=== PATIENT | male | born 1990 | race Caucasian/White ===

== ENCOUNTER 2020-10-21 13:11 | Inpatient (IN) | payer OTHER ==
[2020-10-21 13:51] LABS: #Basophils 0.1 10x3/uL (0.0-0.2); #Eosinphils 0.2 10x3/uL (0.0-0.5); #Monocytes 0.8 10x3/uL (0.0-1.1); #Neutrophils 5.7 10x3/uL (1.5-8.4); %Basophils 0.6 % (0.0-2.0); %Eosinophils 1.7 % (0.0-6.0); %Monocytes 8.8 % (0.0-10.0); %Neutrophils 65.8 % (40.0-75.0); Hemoglobin 15.8 g/dL (13.5-17.5); Mean Corpuscular HGB CONC 34.6 g/dL (32.0-36.0); Mean Corpuscular Hemoglobin 30.3 pg (27.0-33.0); Mean Corpuscular Volume 87.5 fl (81.2-95.1); Mean Platelet Volume 8.7 fl (7.4-10.4); Platelet Count 230 10x3/uL (150-450); RBC Distribution Width 12.2 % (11.5-14.5); Red Blood Cell (RBC) Count 5.22 10x6/uL (4.32-5.72); White Blood Cell (WBC) Count 8.6 10x3/uL (3.5-10.5)
[2020-10-21 14:06] LABS: Bilirubin 1+ (Negative); Blood, Urine 250 (Negative); Clarity Slightly Cloudy (Clear); Glucose, Urine (Dipstick) Normal (Negative); Ketone, Urine 15 mg/dL (Negative); Leukocyte 25 (Negative); Nitrite Positive (Negative); Protein, Urine (Dipstick) 500 mg/dl (Neg-Trace); pH, Urine 6.5 (5.0-9.0)
[2020-10-21 14:06] LABS: ALT (SGPT) 358 U/L (8-55); AST (SGOT) 2037 U/L (5-34); Albumin 4.6 g/dL (3.5-5.0); Alkaline Phosphatase 76 U/L (40-110); Anion Gap 11 mmol/L (10-20); BUN (Urea Nitrogen) 14 mg/dL (8.9-20.6); Bilirubin, Total 0.7 mg/dL (0.2-1.2); Calc. Creatinine Clearance 0 mL/min (70-130); Carbon Dioxide 28 mmol/L (22-29); Chloride 103 mmol/L (98-107); Globulin 2.9 g/dL (2.4-3.5); Glucose 85 mg/dL (70-105); Potassium 4.1 mmol/L (3.5-5.1); Protein, Total 7.5 g/dL (6.0-8.3); Sodium 138 mmol/L (136-145)
[2020-10-21 14:16] LABS: RBC/HPF 0-3 HPF (0-3); Squamous Epithelial None Seen HPF (0-3); Transitional Epithelial 0-3 HPF (None Seen)
[2020-10-21 14:17] LABS: Bacteria/HPF Rare-Few HPF (None Seen)
[2020-10-21 14:40] LABS: CK (CPK) Greater than 40000 U/L (30-200)
[2020-10-21] MEDS ORDERED: cefTRIAXone\\ROCEPHIN 2 GM VIAL ONE (14:59)
[2020-10-21] MEDS ORDERED: Acetaminophen 325 MG TAB PO PRN (20:20)
[2020-10-21] MEDS ORDERED: Calcium Carbonate 500 MG ChewTAB PO PRN (20:20)
[2020-10-21] MEDS ORDERED: Ondansetron PF 4 MG/2 ML Vial IVP PRN (20:20)
[2020-10-21] MEDS ORDERED: Guaifenesin DM 100-10/5 ML UDCUP PO PRN (20:20)
[2020-10-21] MEDS ORDERED: Albuterol Sulfate 2.5 mg/3 ml Neb NEB PRN (20:23)
[2020-10-21 23:47] VITALS: BMI 26.5
[2020-10-22] MEDS ORDERED: Senokot S 8.6-50 MG TAB PO SCH (00:15)
[2020-10-22] MEDS: Sodium Chloride 0.9% 1,000 ML IV SCH ×6 (00:27→20:43)
[2020-10-22 01:25] LABS: Bilirubin Neg (Negative); Blood, Urine 250 (Negative); Clarity Clear (Clear); Glucose, Urine (Dipstick) Normal (Negative); Ketone, Urine 50 mg/dL (Negative); Leukocyte 25 (Negative); Nitrite Negative (Negative); Protein, Urine (Dipstick) 100 mg/dl (Neg-Trace); Specific Gravity, Urine 1.015 (1.002-1.036)
[2020-10-22 01:45] LABS: Bacteria/HPF 1+ HPF (None Seen); Mucous/LPF 1+ LPF (<2+); Squamous Epithelial 0-3 HPF (0-3)
[2020-10-22 06:11] LABS: #Basophils 0.1 10x3/uL (0.0-0.2); #Eosinphils 0.2 10x3/uL (0.0-0.5); #Monocytes 0.7 10x3/uL (0.0-1.1); #Neutrophils 3.8 10x3/uL (1.5-8.4); %Basophils 0.7 % (0.0-2.0); %Eosinophils 3.3 % (0.0-6.0); %Lymphocytes 30.1 % (18.0-47.0); %Monocytes 9.8 % (0.0-10.0); Hemoglobin 14.6 g/dL (13.5-17.5); Mean Corpuscular HGB CONC 34.7 g/dL (32.0-36.0); Mean Corpuscular Hemoglobin 30.8 pg (27.0-33.0); Mean Corpuscular Volume 88.8 fl (81.2-95.1); Mean Platelet Volume 8.9 fl (7.4-10.4); Platelet Count 210 10x3/uL (150-450); RBC Distribution Width 12.3 % (11.5-14.5); Red Blood Cell (RBC) Count 4.74 10x6/uL (4.32-5.72); White Blood Cell (WBC) Count 6.7 10x3/uL (3.5-10.5)
[2020-10-22 06:42] LABS: ALT (SGPT) 360 U/L (8-55); AST (SGOT) 1864 U/L (5-34); Albumin 3.8 g/dL (3.5-5.0); Alkaline Phosphatase 72 U/L (40-110); Anion Gap 14 mmol/L (10-20); BUN (Urea Nitrogen) 11 mg/dL (8.9-20.6); Bilirubin, Total 0.5 mg/dL (0.2-1.2); Calc. Creatinine Clearance 134 mL/min (70-130); Calcium 8.3 mg/dL (7.8-10.44); Carbon Dioxide 23 mmol/L (22-29); Chloride 105 mmol/L (98-107); Globulin 2.6 g/dL (2.4-3.5); Glucose 81 mg/dL (70-105); Protein, Total 6.4 g/dL (6.0-8.3); Sodium 138 mmol/L (136-145)
[2020-10-22 09:00] LABS: CK (CPK) Greater than 40000 U/L (30-200)
[2020-10-22] MEDS: Senokot S 8.6-50 MG TAB PO SCH ×2 (09:35→20:43)
[2020-10-22] MEDS ORDERED: Sodium Chloride 0.9% 1,000 ML IV SCH (10:15)
[2020-10-22] MEDS: Mometasone 200 MCG/PUFF (1 INHALER) INH SCH ×2 (11:02→19:25)
[2020-10-22 13:16] LABS: SARS-CoV-2 PCR by NAA Not Detected (NotDetected)
[2020-10-22] MEDS: cefTRIAXone\\ROCEPHIN 1 GM in Sodium Chloride 0.9% 100 ML IVPB SCH (15:39)
[2020-10-22] MEDS ORDERED: Magnesium Citrate 300 ML BOT PO SCH (16:15)
[2020-10-22] MEDS: Enoxaparin Sodium 40 MG/0.4 ML SYRINGE SC SCH (20:42)
[2020-10-23] MEDS: Sodium Chloride 0.9% 1,000 ML IV SCH ×4 (02:00→19:01)
[2020-10-23] MEDS: Mometasone 200 MCG/PUFF (1 INHALER) INH SCH ×2 (05:52→20:13)
[2020-10-23 06:57] LABS: ALT (SGPT) 416 U/L (8-55); AST (SGOT) 1923 U/L (5-34); Albumin 3.9 g/dL (3.5-5.0); Alkaline Phosphatase 72 U/L (40-110); Anion Gap 11 mmol/L (10-20); BUN (Urea Nitrogen) 7 mg/dL (8.9-20.6); Bilirubin, Total 0.5 mg/dL (0.2-1.2); Calc. Creatinine Clearance 148 mL/min (70-130); Calcium 8.7 mg/dL (7.8-10.44); Carbon Dioxide 27 mmol/L (22-29); Chloride 105 mmol/L (98-107); Globulin 2.6 g/dL (2.4-3.5); Glucose 81 mg/dL (70-105); Potassium 4.2 mmol/L (3.5-5.1); Protein, Total 6.5 g/dL (6.0-8.3); Sodium 139 mmol/L (136-145)
[2020-10-23] MEDS: Senokot S 8.6-50 MG TAB PO SCH ×2 (09:02→21:09)
[2020-10-23 09:28] LABS: CK (CPK) Greater than 40000 U/L (30-200)
[2020-10-23] MEDS ORDERED: cefTRIAXone\\ROCEPHIN 1 GM VIAL ONE (15:49)
[2020-10-23] MEDS: cefTRIAXone\\ROCEPHIN 1 GM in Sodium Chloride 0.9% 100 ML IVPB SCH (16:29)
[2020-10-23] MEDS: Enoxaparin Sodium 40 MG/0.4 ML SYRINGE SC SCH (21:09)
[2020-10-24 07:22] LABS: ALT (SGPT) 463 U/L (8-55); AST (SGOT) 1814 U/L (5-34); Albumin 4.2 g/dL (3.5-5.0); Alkaline Phosphatase 76 U/L (40-110); Anion Gap 10 mmol/L (10-20); BUN (Urea Nitrogen) 8 mg/dL (8.9-20.6); Bilirubin, Total 0.7 mg/dL (0.2-1.2); Calc. Creatinine Clearance 141 mL/min (70-130); Calcium 9.3 mg/dL (7.8-10.44); Carbon Dioxide 27 mmol/L (22-29); Chloride 103 mmol/L (98-107); Globulin 2.9 g/dL (2.4-3.5); Glucose 85 mg/dL (70-105); Protein, Total 7.1 g/dL (6.0-8.3); Sodium 136 mmol/L (136-145)
[2020-10-24] MEDS: Mometasone 200 MCG/PUFF (1 INHALER) INH SCH ×2 (07:35→21:41)
[2020-10-24 08:11] LABS: CK (CPK) Greater than 40000 U/L (30-200)
[2020-10-24 08:49] LABS: Hep B Surf Ag Non-Reactive S/CO (NonReactive)
[2020-10-24] MEDS: Sodium Chloride 0.9% 1,000 ML IV SCH ×4 (08:50→23:45)
[2020-10-24 08:51] LABS: HBSAg Index 0.21 S/CO (0-0.99)
[2020-10-24] MEDS: Senokot S 8.6-50 MG TAB PO SCH ×2 (08:51→21:31)
[2020-10-24 12:14] LABS: HBCM Index 0.23 S/CO (0-0.79); Hep A IgM AB Non-Reactive (NonReactive); Hep A IgM S/CO 0.17 S/CO (0-0.79); Hep C IgG Ab Non-Reactive (NonReactive); Hep C Index 0.09 S/CO (0-0.79); Hepatitis B Core IgM Abs Non-Reactive (NonReactive)
[2020-10-24] MEDS: cefTRIAXone\\ROCEPHIN 1 GM in Sodium Chloride 0.9% 100 ML IVPB SCH (14:53)
[2020-10-24] MEDS: Enoxaparin Sodium 40 MG/0.4 ML SYRINGE SC SCH (21:30)
[2020-10-24] MEDS: HYDROcodone/Acetaminophen 5/325 mg Tablet PO PRN (21:57)
[2020-10-25] MEDS: Sodium Chloride 0.9% 1,000 ML IV SCH ×6 (00:30→21:22)
[2020-10-25 04:29] LABS: Bilirubin Neg (Negative); Blood, Urine Negative (Negative); Clarity Clear (Clear); Glucose, Urine (Dipstick) Normal (Negative); Ketone, Urine Negative (Negative); Leukocyte Negative (Negative); Nitrite Negative (Negative); Protein, Urine (Dipstick) Negative (Neg-Trace); Urobilinogen Normal mg/dL (Less than 2)
[2020-10-25 05:05] LABS: Bacteria/HPF None Seen HPF (None Seen); RBC/HPF None Seen HPF (0-3); Squamous Epithelial 0-3 HPF (0-3); WBC/HPF None Seen HPF (0-3)
[2020-10-25 05:58] LABS: ALT (SGPT) 361 U/L (8-55); AST (SGOT) 1075 U/L (5-34); Albumin 3.8 g/dL (3.5-5.0); Alkaline Phosphatase 64 U/L (40-110); Anion Gap 11 mmol/L (10-20); BUN (Urea Nitrogen) 10 mg/dL (8.9-20.6); Bilirubin, Total 0.5 mg/dL (0.2-1.2); Calc. Creatinine Clearance 150 mL/min (70-130); Calcium 8.5 mg/dL (7.8-10.44); Carbon Dioxide 25 mmol/L (22-29); Chloride 105 mmol/L (98-107); Globulin 2.6 g/dL (2.4-3.5); Glucose 86 mg/dL (70-105); Potassium 3.8 mmol/L (3.5-5.1); Protein, Total 6.4 g/dL (6.0-8.3); Sodium 137 mmol/L (136-145)
[2020-10-25 06:12] LABS: CK (CPK) 26505 U/L (30-200)
[2020-10-25] MEDS: Mometasone 200 MCG/PUFF (1 INHALER) INH SCH ×2 (08:12→19:40)
[2020-10-25] MEDS: Senokot S 8.6-50 MG TAB PO SCH ×2 (08:36→21:22)
[2020-10-25] MEDS: HYDROcodone/Acetaminophen 5/325 mg Tablet PO PRN (08:42)
[2020-10-25] MEDS: cefTRIAXone\\ROCEPHIN 1 GM in Sodium Chloride 0.9% 100 ML IVPB SCH (14:54)
[2020-10-25] MEDS: Enoxaparin Sodium 40 MG/0.4 ML SYRINGE SC SCH (21:21)
[2020-10-26] MEDS: Sodium Chloride 0.9% 1,000 ML IV SCH ×3 (00:05→08:17)
[2020-10-26 07:00] LABS: ALT (SGPT) 335 U/L (8-55); AST (SGOT) 659 U/L (5-34); Albumin 4.1 g/dL (3.5-5.0); Alkaline Phosphatase 67 U/L (40-110); Anion Gap 10 mmol/L (10-20); BUN (Urea Nitrogen) 11 mg/dL (8.9-20.6); Bilirubin, Total 0.5 mg/dL (0.2-1.2); Calc. Creatinine Clearance 148 mL/min (70-130); Calcium 9.3 mg/dL (7.8-10.44); Carbon Dioxide 29 mmol/L (22-29); Chloride 104 mmol/L (98-107); Globulin 2.8 g/dL (2.4-3.5); Glucose 87 mg/dL (70-105); Protein, Total 6.9 g/dL (6.0-8.3); Sodium 139 mmol/L (136-145)
[2020-10-26 07:23] LABS: CK (CPK) 10801 U/L (30-200)
[2020-10-26] MEDS: Senokot S 8.6-50 MG TAB PO SCH (08:17)
[2020-10-26] MEDS: Mometasone 200 MCG/PUFF (1 INHALER) INH SCH (09:05)
[2020-10-26] MEDS: cefTRIAXone\\ROCEPHIN 1 GM in Sodium Chloride 0.9% 100 ML IVPB SCH (14:48)
[2020-10-26 15:41] VITALS: BP 116/72; TEMP 98.2
== END 2020-10-26 17:00 | DRG 558 ==
LOC: CSHERS 13:11 → EEVIPCON 13:11 → CSHTELE 23:30
PROVIDERS: ADMIT Student in an Organized Health Care Education/Training Program; ATTEND Family Medicine
DX: M62.82 Rhabdomyolysis (principal); N39.0 Urinary tract infection, site not specified; J45.20 Mild intermittent asthma, uncomplicated; Z87.891 Personal history of nicotine dependence; Z20.822 Contact with and (suspected) exposure to COVID-19
CPT/HCPCS: 36415; 80053; 80074; 81001; 81003; 81015; 82550; 85025; 87086; 87635; 94664; 96365; J0696; J1650; J3490; J7050; U0003; U0005